=== PATIENT | male | born 1995 | race Two or more races ===

== ENCOUNTER → 2024-09-29 | Outpatient (CLI) | payer BC ==
[2024-09-29 09:28] LABS: Urine Protein, UAD Negative (Negative)
[2024-09-29 09:29] LABS: Alkaline Phosphatase 95 U/L (46-116); Anion Gap 11 (5-15); BUN/Creatinine Ratio 9.2 (10.0-20.0); Blood Urea Nitrogen 10 mg/dL (9-23); Calcium 10.2 mg/dL (8.7-10.4); Carbon Dioxide 27 mmol/L (20-31); Chloride 104 mmol/L (98-107); Cholesterol 172 mg/dL (< 200); Glucose 97 mg/dL (74-106); Potassium 3.6 mmol/L (3.5-5.1); Sodium 142 mmol/L (136-145); Total Protein 7.7 g/dL (5.7-8.2)
[2024-09-29 09:30] LABS: Alanine Aminotransferase 48 U/L (7-40); Albumin 5.1 g/dL (3.2-4.8); Bilirubin, Total 1.8 mg/dL (0.2-1.0); HDL Cholesterol 39 mg/dL (40-59); Triglycerides 182 mg/dL (< 150)
[2024-09-29 10:18] LABS: Hematocrit 46.1 % (41.0-53.0); Hemoglobin 16.4 g/dL (13.5-17.5); Mean Corpuscular Hemoglobin 31.3 pg (28.0-32.0); Mean Corpuscular Volume 87.8 fL (80.0-100.0); Nucleated Red Blood Cells % 0.5 %
[2024-09-30 12:07] LABS: Chlamydia Trachomatis, NAA Negative (Negative); Neisseria gonorrhoeae, NAA Negative (Negative)
== END | disposition home or self-care (01) ==
LOC: LAB 07:27
PROVIDERS: ATTEND Internal Medicine
DX: R03.0 Elevated blood-pressure reading, without diagnosis of hypertension (principal); Z11.59 Encounter for screening for other viral diseases; Z11.3 Encounter for screening for infections with a predominantly sexual mode of transmission; Z00.01 Encounter for general adult medical examination with abnormal findings
CPT/HCPCS: 36415; 80053; 80061; 81001; 83036; 84439; 84443; 85025; 86695; 86696; 86703; 86780